=== PATIENT | female | born 1970 | race Caucasian/White ===

== ENCOUNTER 2024-03-21 09:16 | Outpatient (OUT) | payer OTHER, SELFPAY ==
--- NOTE | 2024-03-21 09:20 | MM_ITS ---
Patient Name: GINETTE DAMICO MR#: [id number] : 1970 Exam Date: 03/21/2024 Ordering Doctor: DR Cony Richard M.D. RADIOLOGY REPORT PROCEDURE: MM TOMOSYNTHESIS SCREENING BI COMPARISON: MG MAMM SCREEN 3D MAXIM CAD, 05/01/2022. MG MAMM SCREEN MAXIM W CAD, 03/29/2019. INDICATIONS: Screening Calculator Name NCI Breast Cancer Risk Assessment Tool 5 Year Breast Cancer Risk 1.50% Lifetime Breast Cancer Risk 10.20% Personal Breast Cancer No Personal Ovarian Cancer No Treatments None Family Cancers Grandfather-maternal with liver cancer at age 74; Grandfather-paternal with eye cancer at age ~70; Father with prostate cancer at age ~70. LOCATION: [facility] BREAST COMPOSITION: The breasts are extremely dense, which lowers the sensitivity of mammography. FINDINGS: DIAGNOSTIC CATEGORY 2--BENIGN FINDING. NO CHANGE FROM COMPARISON. Scattered benign-appearing lymph nodes are present. RIGHT BREAST: No significant suspicious finding. LEFT BREAST: No significant suspicious finding. RECOMMENDATIONS: ROUTINE MAMMOGRAM AND CLINICAL EVALUATION IN 12 MONTHS. PLEASE NOTE: A NORMAL MAMMOGRAM DOES NOT EXCLUDE THE POSSIBILITY OF BREAST CANCER. A CLINICALLY SUSPICIOUS PALPABLE LUMP SHOULD BE BIOPSIED. Dictated by: Cory Wilkerson MD on 03/21/2024 at 11:56 Approved by: Cory Wilkerson MD on 03/21/2024 at 11:57
== END 2024-03-21 09:17 | disposition home or self-care (01) ==
LOC: MAMMO 09:17
PROVIDERS: PCP Family Medicine; Visit Provider Family Medicine
DX: Z12.31 Encounter for screening mammogram for malignant neoplasm of breast (principal); Z80.0 Family history of malignant neoplasm of digestive organs; Z80.42 Family history of malignant neoplasm of prostate; Z80.8 Family history of malignant neoplasm of other organs or systems
CPT/HCPCS: 77063; 77067